=== PATIENT | male | born 1955 | race Caucasian/White ===

== ENCOUNTER 2016-08-28 16:23 | Emergency (ER) | payer BC ==
[~2016-08-28] VITALS: Ht 172.7 cm; Wt 91.2 kg
--- NOTE | 2016-08-28 16:39 | Emergency Room Report ---
History of Present Illness Time Seen by MD Andrade Presenting Problem in Triage Pt arrived:Walked Presenting Problem:LACERATION TO L MIDDLE FINGER. 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 N Clinical Suspician of Infection? N Mental Status: 1 - Regular (Normal Baseline) Sepsis Risk:Low Sepsis Risk Have you (or family members/close friends) recently traveled outside the [place]? N If Yes, where/when: Have you had exposure to infectious disease within the past month? N TB? Other? 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 ALLERGIES Coded Allergies: No Known Allergies (08/28/16) Home Medications Reported Medications No Known Home Medications History Medical History General CAD? No Angina: No [place]: No Hypertension? No Hyperlipidemia? Yes CHF? No DVT? No PE? No COPD? No Asthma? No Anemia? No GERD? No Gastric ulcers? No GI Bleed? No Hernia? Yes Thyroid Problems? No Hypothyroidism? No CVA? No Seizures? No Diabetes? Yes Insulin Dependent: No Insulin Pump: No Home FSBS? No Renal Insuffiency? No End Stage Renal Disease? No UTI? Yes Stones? No GB Disease: No Hepatitis? No Cataracts? No Glaucoma? No MRSA? No TB? No Cancer? No Immunization Hx DT/Tetanus Unknown Flu LAST YEAR Pneumonia NEVER Surgical Hx Previous Surgery?Y Hernia Repair PROSTATE SURGERY Family History Family Hx Diabetes No CAD Yes Hypertension Yes Hyperlipidemia Yes Cancer Yes TB Yes Social History Smoking Hx Smoker: Never Smoker Tobacco: No Alcohol Alcohol: No Review of Systems All Other Systems Reviewed and Negative Skin see HPI Physical Exam Vital Signs Vital Signs Date Time Temp Pulse Resp B/P Pulse O2 O2 Flow FiO2 Ox Delivery Rate 08/28 1630 98.1 81 18 155/90 96 General Appearance normal appearance, WD/WN, no apparent distress Eye Exam - bilateral eye normal exam, bilateral eye PERRL Respiratory Status Yes: trachea midline, chest symmetrical, non tender chest. No: respiratory distress, tender on palpation, use of accessory muscles, pain on inspiration, pain on expiration, productive cough, non productive cough. Lung Sounds bilateral: normal breath sounds, lungs clear. Cardiovascular normal exam, regular rate/rhythm, no peripheral edema, no gallop, no JVD, no murmur, no rub, normal peripheral pulses Extremities non-tender, normal range of motion, normal capillary refill Neurologic alert, normal exam, no motor/sensory deficits, oriented x 3 Skin laceration(s), curvilinar, 1.5 cm laceration to volar aspect distal middle digit, beyond DIP crease, no tendon exposure, no FB, no debris, no bone exposure , no bleeding; has very small subungual hematoma. Well perfused distally with brisk CR. Fully sensate. Medical Decision Making LABS/Meds/Orders Pt receiving controlled substance in ED? No Results/Orders Current Medication Orders Sig/Deonte Start time Last Medication Dose Route Stop Time Status Admin Lidocaine HCl 0 .STK-MED ONE 08/28 1704 DC .ROUTE Diphtheria/Pertussis/ 0.5 ML ONCE ONE 08/28 1645 DC Tetanus Vacc IM 08/28 164 Lidocaine HCl 10 ML ONCE ONE 08/28 164 DC SC 08/28 1646 Procedures Laceration/Wound Repair Laceration/Wound Repair Risks/benefits discussed with pt/guardian? Yes Tetanus status up to date (updated today) Wound Location finger(s) Wound Length (cm) 1.5 Wound's Depth, Shape superficial Wound Explored clean Irrigated w/ Saline (ccs) 50 Wound Prep Hibiclens Anesthesia 1% Lidocaine Volume Anesthetic (ccs) 1 Wound Debrided none Wound Repaired With sutures Suture Size/Type 4:0, Ethilon Layer Closure No Total Number Sutures 7 Sterile Dressing Applied Yes Departure Departure Time of Disposition 1735 Disposition DC Home or Self Care(routine) Clinical Impression Primary Impression: Laceration of middle finger of right hand without complication Qualifiers: Encounter type: initial encounter Qualified Code: S61.212A - Laceration without foreign body of right middle finger without damage to nail, initial encounter Condition STABLE Referrals Victor Hugo Monte MD (Family) Patient Instructions Laceration Repair Additional Instructions Keep wound covered and dry until sutures out per Dr. Motne in 7-10 days; Advil as needed Discharge Counseling Counseled pt/family regarding diagnosis, medications/RX, home care, follow up needs Prescriptions Current Visit Scripts No Known Home Medications ED Critical Care Critical Care No at 1737
--- NOTE | 2016-08-28 16:39 | Emergency Room Report ---
History of Present Illness Time Seen by MD Andrade Presenting Problem in Triage Pt arrived:Walked Presenting Problem:LACERATION TO L MIDDLE FINGER. 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 N Clinical Suspician of Infection? N Mental Status: 1 - Regular (Normal Baseline) Sepsis Risk:Low Sepsis Risk Have you (or family members/close friends) recently traveled outside the [place]? N If Yes, where/when: Have you had exposure to infectious disease within the past month? N TB? Other? 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 ALLERGIES Coded Allergies: No Known Allergies (08/28/16) Home Medications Reported Medications No Known Home Medications History Medical History General CAD? No Angina: No [place]: No Hypertension? No Hyperlipidemia? Yes CHF? No DVT? No PE? No COPD? No Asthma? No Anemia? No GERD? No Gastric ulcers? No GI Bleed? No Hernia? Yes Thyroid Problems? No Hypothyroidism? No CVA? No Seizures? No Diabetes? Yes Insulin Dependent: No Insulin Pump: No Home FSBS? No Renal Insuffiency? No End Stage Renal Disease? No UTI? Yes Stones? No GB Disease: No Hepatitis? No Cataracts? No Glaucoma? No MRSA? No TB? No Cancer? No Immunization Hx DT/Tetanus Unknown Flu LAST YEAR Pneumonia NEVER Surgical Hx Previous Surgery?Y Hernia Repair PROSTATE SURGERY Family History Family Hx Diabetes No CAD Yes Hypertension Yes Hyperlipidemia Yes Cancer Yes TB Yes Social History Smoking Hx Smoker: Never Smoker Tobacco: No Alcohol Alcohol: No Review of Systems All Other Systems Reviewed and Negative Skin see HPI Physical Exam Vital Signs Vital Signs Date Time Temp Pulse Resp B/P Pulse O2 O2 Flow FiO2 Ox Delivery Rate 08/28 1630 98.1 81 18 155/90 96 General Appearance normal appearance, WD/WN, no apparent distress Eye Exam - bilateral eye normal exam, bilateral eye PERRL Respiratory Status Yes: trachea midline, chest symmetrical, non tender chest. No: respiratory distress, tender on palpation, use of accessory muscles, pain on inspiration, pain on expiration, productive cough, non productive cough. Lung Sounds bilateral: normal breath sounds, lungs clear. Cardiovascular normal exam, regular rate/rhythm, no peripheral edema, no gallop, no JVD, no murmur, no rub, normal peripheral pulses Extremities non-tender, normal range of motion, normal capillary refill Neurologic alert, normal exam, no motor/sensory deficits, oriented x 3 Skin laceration(s), curvilinar, 1.5 cm laceration to volar aspect distal middle digit, beyond DIP crease, no tendon exposure, no FB, no debris, no bone exposure , no bleeding; has very small subungual hematoma. Well perfused distally with brisk CR. Fully sensate. Medical Decision Making LABS/Meds/Orders Pt receiving controlled substance in ED? No Results/Orders Current Medication Orders Sig/Deonte Start time Last Medication Dose Route Stop Time Status Admin Lidocaine HCl 0 .STK-MED ONE 08/28 1704 DC .ROUTE Diphtheria/Pertussis/ 0.5 ML ONCE ONE 08/28 1645 DC Tetanus Vacc IM 08/28 164 Lidocaine HCl 10 ML ONCE ONE 08/28 164 DC SC 08/28 1646 Procedures Laceration/Wound Repair Laceration/Wound Repair Risks/benefits discussed with pt/guardian? Yes Tetanus status up to date (updated today) Wound Location finger(s) Wound Length (cm) 1.5 Wound's Depth, Shape superficial Wound Explored clean Irrigated w/ Saline (ccs) 50 Wound Prep Hibiclens Anesthesia 1% Lidocaine Volume Anesthetic (ccs) 1 Wound Debrided none Wound Repaired With sutures Suture Size/Type 4:0, Ethilon Layer Closure No Total Number Sutures 7 Sterile Dressing Applied Yes Departure Departure Time of Disposition 1735 Disposition DC Home or Self Care(routine) Clinical Impression Primary Impression: Laceration of middle finger of right hand without complication Qualifiers: Encounter type: initial encounter Qualified Code: S61.212A - Laceration without foreign body of right middle finger without damage to nail, initial encounter Condition STABLE Referrals Victor Hugo Monte MD (Family) Patient Instructions Laceration Repair Additional Instructions Keep wound covered and dry until sutures out per Dr. Monte in 7-10 days; Advil as needed Discharge Counseling Counseled pt/family regarding diagnosis, medications/RX, home care, follow up needs Prescriptions Current Visit Scripts No Known Home Medications ED Critical Care Critical Care No at 1737
--- OUTSIDE RECORDS SUMMARY | 2016-08-28 16:46 | External Medical Summary Rpt ---
Demographics Preferred Language Nigerien Marital Status Unknown Taoist Affiliation Unknown Race Unknown Ethnic Group Unknown Author Author , Organization [employer] Address Unknown Phone Unavailable Purpose Continuity of Care Document - through 2016 Immunization No patient found.
--- OUTSIDE RECORDS SUMMARY | 2016-08-28 16:46 | External Medical Summary Rpt ---
Demographics Preferred Language Grenadian Marital Status Unknown Pentecostalism Affiliation Unknown Race Unknown Ethnic Group Unknown Author Author , Organization [employer] Address Unknown Phone Unavailable Purpose Continuity of Care Document - through 2016 Immunization No patient found.
--- OUTSIDE RECORDS SUMMARY | 2016-08-28 16:46 | External Medical Summary Rpt ---
Author Author [employer] Organization [employer] Address Unknown Phone Unavailable Purpose Continuity of Care Document - through 2016
[2016-08-28 18:25] VITALS: BP 157/92
== END 2016-08-28 18:26 | disposition home or self-care (01) ==
LOC: ER 16:23
PROC: 0HQFXZZ Repair Right Hand Skin, External Approach (ICD-10-PCS; principal; 2016-08-28)
DX: S61.212A Laceration without foreign body of right middle finger without damage to nail, initial encounter (principal); Z23 Encounter for immunization; W23.1XXA Caught, crushed, jammed, or pinched between stationary objects, initial encounter